=== PATIENT | female | born 1960 ===

== ENCOUNTER 2019-03-12 14:16 | Inpatient (IN) | payer OTHER ==
[~2019-03-12] VITALS: Ht 162.6 cm; Wt 81.6 kg
[2019-03-25] MEDS ORDERED: OMEPRAZOLE20 MG PO (09:48)
[2019-03-29] MEDS ORDERED: ULTRACET PO (10:58)
[2019-03-29] MEDS ORDERED: INTESTINEX680 M1 PO (10:58)
[2019-04-23] MEDS ORDERED: ABANEU-SL TABL1 EACH SL (10:07)
[2019-04-23] MEDS ORDERED: VITAMIN B-650 M1 PO (10:07)
[2019-04-23] MEDS ORDERED: MULTIPLE VITAM1 EAC2 PO (10:08)
[2019-04-23] MEDS ORDERED: PROBIOTIC1 EAC2 PO (10:08)
== END 2019-03-29 12:05 | disposition home or self-care (01) | DRG 330 ==
LOC: SURG 03-25 08:15 → O/R 03-25 08:15 → SURH 03-25 13:45 → SURG 03-25 19:34
PROVIDERS: ADMIT Surgery
PROC: 07TB4ZZ Resection of Mesenteric Lymphatic, Percutaneous Endoscopic Approach (ICD-10-PCS; 2019-03-25)
PROC: 0DBU4ZZ Excision of Omentum, Percutaneous Endoscopic Approach (ICD-10-PCS; 2019-03-25)
PROC: 0DTM4ZZ Resection of Descending Colon, Percutaneous Endoscopic Approach (ICD-10-PCS; principal; 2019-03-25 14:30)
DX: C18.5 Malignant neoplasm of splenic flexure (principal); C83.33 Diffuse large B-cell lymphoma, intra-abdominal lymph nodes; R59.0 Localized enlarged lymph nodes; K66.0 Peritoneal adhesions (postprocedural) (postinfection); D50.0 Iron deficiency anemia secondary to blood loss (chronic); R73.01 Impaired fasting glucose

== ENCOUNTER 2019-03-24 08:35 | Day surgery (SDC) | payer OTHER ==
[2019-03-25] MEDS ORDERED: OMEPRAZOLE20 MG PO (09:48)
[2019-04-23] MEDS ORDERED: ABANEU-SL TABL1 EACH SL (10:07)
[2019-04-23] MEDS ORDERED: VITAMIN B-650 M1 PO (10:07)
[2019-04-23] MEDS ORDERED: MULTIPLE VITAM1 EAC2 PO (10:08)
[2019-04-23] MEDS ORDERED: PROBIOTIC1 EAC2 PO (10:08)
== END 2019-03-24 14:22 | disposition home or self-care (01) ==
LOC: AMB-ENDOS 08:35 → ADM 03-25 13:45
DX: C18.5 Malignant neoplasm of splenic flexure (principal)

== ENCOUNTER 2019-04-01 06:50 | Emergency (ER) | payer OTHER ==
[~2019-04-01] VITALS: Ht 162.6 cm; Wt 81.6 kg
[~2019-04-01 06:50] MED LIST: INTESTINEX680 M1 PO; OMEPRAZOLE20 MG PO; ULTRACET PO
[2019-04-23] MEDS ORDERED: ABANEU-SL TABL1 EACH SL (10:07)
[2019-04-23] MEDS ORDERED: VITAMIN B-650 M1 PO (10:07)
[2019-04-23] MEDS ORDERED: MULTIPLE VITAM1 EAC2 PO (10:08)
[2019-04-23] MEDS ORDERED: PROBIOTIC1 EAC2 PO (10:08)
== END 2019-04-01 10:06 | disposition home or self-care (01) ==
LOC: ER 06:50
DX: L03.113 Cellulitis of right upper limb (principal)

== ENCOUNTER 2019-04-25 06:00 | Day surgery (SDC) | payer OTHER ==
[~2019-04-25 06:00] MED LIST changes: +ABANEU-SL TABL1 EACH SL; +MULTIPLE VITAM1 EAC2 PO; +PROBIOTIC1 EAC2 PO; +VITAMIN B-650 M1 PO
[2019-04-25] MEDS ORDERED: PERCOCET 5-3251 EACH PO (10:23)
== END 2019-04-25 11:00 | disposition home or self-care (01) ==
LOC: CIR.AMB 06:00 → ADM 09:00 → CIR.AMB 09:00
DX: C83.30 Diffuse large B-cell lymphoma, unspecified site (principal)
CPT/HCPCS: 36561; C1751

== ENCOUNTER 2020-06-28 05:45 | Day surgery (SDC) | payer OTHER ==
[~2020-06-28 05:45] MED LIST changes: +PERCOCET 5-3251 EACH PO
== END 2020-06-28 09:25 | disposition home or self-care (01) ==
LOC: AMB-ENDOS 05:45
PROVIDERS: ATTEND Surgery
DX: K62.89 Other specified diseases of anus and rectum (principal); Z20.822 Contact with and (suspected) exposure to COVID-19

== ENCOUNTER 2020-10-01 07:50 | Day surgery (SDC) | payer OTHER ==
[~2020-10-01 07:50] MED LIST changes: +B COMPLEX1 EACH PO; +VITAMIN C100 MG PO; +ZINC50 M1 PO
[2020-10-01] MEDS ORDERED: PERCOCET 5-3251 EACH PO (11:01)
== END 2020-10-01 14:34 | disposition home or self-care (01) ==
LOC: CIR.AMB 07:50
PROVIDERS: ATTEND Surgery
DX: C18.5 Malignant neoplasm of splenic flexure (principal); Z20.822 Contact with and (suspected) exposure to COVID-19